=== PATIENT | male | born 1985 | race Caucasian/White ===

== ENCOUNTER 2020-04-11 04:18 | Emergency (ER) | payer SELFPAY ==
[2020-04-11 04:22] VITALS: BP 134/86; PULSE 88; RESP 20; TEMP 36.6; O2SAT 100; BMI 20.2
[2020-04-11 04:36] LABS: Bilirubin Urine UA NEGATIVE (NEGATIVE); Color Urine UA YELLOW; Glucose Urine UA NEGATIVE (Negative); Ketones Urine UA NEGATIVE (NEGATIVE); Leukocyte Esterase Urine UA 2+ (NEGATIVE); Nitrite Urine UA NEGATIVE (Negative); Occult Blood Urine UA NEGATIVE (Negative); Protein Urine UA NEGATIVE (Negative); Specific Gravity Urine UA >=1.030 (1.000-1.035); Urobilinogen Urine UA 0.2 E.U./dL (0.2); pH Urine UA 5.5 (4.5-8.0)
[2020-04-11 04:38] LABS: Appearance Urine UA Slightly Cloudy
--- NOTE | 2020-04-11 04:41 | ED_ITS ---
HPI - General Adult General Chief complaint: Urogenital-Male Stated complaint: had unprotected sex yesterday, wants checked Time Seen by Provider: 04/11/20 04:27 Source: patient Mode of arrival: Ambulatory Limitations: no limitations History of Present Illness HPI narrative: Otherwise healthy 34-year-old male here for evaluation of potential sexually transmitted infection. Patient states that over the past several days he has had unprotected intercourse with 2 different females. He has never had a sexually transmitted disease in the past. He states that starting yesterday he has had dysuria it what he thinks is pus draining from his urethra. He denies any testicular pain no abdominal pain. No rashes. Has not tried anything for symptoms prior to arrival. Related Data Allergies Allergy/AdvReac Type Severity Reaction Status Date / Time No Known Drug Allergies Allergy Verified 04/11/20 04:28 Review of Systems Constitutional Constitutional: Denies fever(s) Cardiovascular Cardiovascular: Denies chest pain and Denies dyspnea Respiratory Respiratory: Denies dyspnea Gastrointestinal Gastrointestinal: Denies abdominal pain Genitourinary Genitourinary: Reports dysuria, Reports dysuria and Reports penile discharge Genitourinary: Reports dysuria and Reports dysuria Integumentary/Breasts Skin/Breast: Denies lesions and Denies rash Neurologic Neurologic: Denies behavioral changes Psychiatric Psychiatric: Denies behavioral changes Hematologic/Lymphatic Hematologic/Lymphatic: Denies easy bleeding and Denies easy bruising Patient History Medical History Healthy adult (Acute) Social History Smoking Status: Current every day smoker Smoking Status: Current every day smoker alcohol intake frequency: other Substance Use Type: does not use Exam Initial Vital Signs Initial Vital Signs: Vital Signs Temperature 97.8 F 04/11/20 04:22 Pulse Rate 88 04/11/20 04:22 Respiratory Rate 20 04/11/20 04:22 Blood Pressure 134/86 04/11/20 04:22 Pulse Oximetry 100 04/11/20 04:22 Const General: cooperative and comfortable Limitations: mental status not altered External: circumcised Penis: normal penis, no pustules and no swelling Meatus: meatal discharge Scrotum: scrotum normal Testes: normal Skin Lesions: no lesions Rashes: no rashes Extrem General: capillary refill normal Course Orders Ordered: ED Orders 04/11/20 04:30 Chlamydia Gonorrhea PCR -URINE Stat Urinalysis and Microscopic Stat Urine Culture Stat Discontinued Medications Azithromycin (Zithromax) 1,000 mg PO NOW ONE Stop: 04/11/20 04:42 Last Admin: 04/11/20 05:11 Dose: 1,000 mg Documented by: [email or web address] Ceftriaxone Sodium (Rocephin) 250 mg IM NOW ONE Stop: 04/11/20 04:42 Last Admin: 04/11/20 05:11 Dose: 250 mg Documented by: [email or web address] Lidocaine HCl (Xylocaine 1%) 10 ml INJ NOW ONE Stop: 04/11/20 04:59 Vital Signs Vital signs: Vital Signs - 8 hr 04/11/20 04:22 Temperature 97.8 F Pulse Rate 88 Respiratory Rate 20 Blood Pressure 134/86 Pulse Oximetry 100 Medical Decision Making Lab Data Labs: Lab Results 04/11/20 Range/Units 04:30 Urine Color Yellow Urine Appearance Slightly cloudy Urine pH 5.5 (4.5-8.0) Ur Specific [place] >=1.030 H (1.000-1.035) Urine Protein Negative (Negative) Urine Glucose (UA) Negative (Negative) g/dL Urine Ketones Negative (NEGATIVE) Urine Occult Blood Negative (Negative) Urine Nitrate Negative (Negative) Urine Bilirubin Negative (NEGATIVE) Urine Urobilinogen 0.2 (0.2) E.U./dL Ur Leukocyte Esterase 2+ H (NEGATIVE) Urine RBC 0-1/hpf (0-5/HPF) Urine WBC 30-100/hpf H (0-5/HPF) Urine Bacteria Few (2-10) H (None) Urine Mucus 1+ H (Negative) Ur Culture Indicated? Specimen cultured MDM Narrative Medical decision making narrative: Given the patient's history and physical exam is findings most consistent with a sexually transmitted infection. We will presumptively treat him for this. He was given Rocephin and azithromycin here in the ER. Patient was instructed he should avoid sexual intercourse for at least the next 14 days and should talk with his primary doctor about obtaining a testicular before having sexual intercourse again. He was also informed that it would be most appropriate to talk with his sexual partners to let them know of his treatment of his infection today. Patient was given return precautions and follow-up instructions. He expressed understanding and agreement. Discharge Plan Departure Patient Disposition: Home Clinical Impression: STI (sexually transmitted infection) Discharge Date/Time: 04/11/20 05:27 Instructions: Informing Partners of STI Patients Reduces Ongoing and Recurrent Sexually T, Facts About Sexually Transmitted Infections Activity Restrictions/Additional Instructions: Recommend that you obtain from sexual activity for the next 14 days. Ideally he would contact your primary provider to get what is called a ?test of cure ? before having sexual intercourse again. I also highly recommend that you talk with her sexual partners about being treated today so that they can also be treated. Return to the emergency department for any new or worsening symptoms
[2020-04-11 04:44] LABS: RBC Urine 0-1/HPF (0-5/HPF); WBC Urine 30-100/HPF (0-5/HPF)
[2020-04-11 04:45] LABS: Bacteria Urine Few (2-10); Culture Indicated Urine Specimen Cultured; Mucus Urine 1+ (Negative)
[2020-04-11] MEDS: AZITHROMYCIN 250 MG TABLET 1000 MG PO (05:11)
[2020-04-11] MEDS: cefTRIAXone 1,000 MG VIAL 250 MG IM (05:11)
[2020-04-11] MEDS: LIDOCAINE 1% (PF) 2 ML (05:12)
[2020-04-11 06:06] LABS: Urine Chlamydia NOT DETECTED
[2020-04-11 08:59] LABS: Urine N gonorrhoeae DETECTED
--- NOTE | 2020-04-19 13:21 | PC.NURSE ---
Pt came to ED for results. Given verbally. Pt was treated in ED.
== END 2020-04-11 05:27 | disposition home or self-care (01) ==
PROVIDERS: Emergency Provider Emergency Medicine
DX: Z20.2 Contact with and (suspected) exposure to infections with a predominantly sexual mode of transmission (principal); A54.9 Gonococcal infection, unspecified; R30.0 Dysuria
CPT/HCPCS: 81001; 87086; 87491; 87591; 96372; 99283; J0696